=== PATIENT | female | born 1985 | race Asian ===

== ENCOUNTER 2017-01-31 11:23 | Emergency (ER) | payer OTHER ==
[2017-01-31 11:28] VITALS: BMI 23.6
[2017-01-31 12:01] LABS: BASOPHIL 0.2 % (0-2.0); EOSINOPHIL 0.1 % (0-4.5); MCH 28.7 pg (25.7-33.7); MCHC 33.8 g/dl (32.0-36.0); MEAN CELL VOLUME 84.9 fl (80-96); MEAN PLT VOLUME 7.8 fl (7.5-11.1); NEUTROPHILS 90.7 % (42.8-82.8); PLATELET COUNT 222 K/MM3 (134-434); RDW 13.7 % (11.6-15.6); WHITE BLOOD COUNT 16.9 K/mm3 (4.0-10.0)
[2017-01-31 12:27] LABS: ALBUMIN 3.4 g/dl (3.4-5.0); ANION GAP 10 (8-16); CALCIUM 8.8 mg/dL (8.5-10.1); CO2 20 mmol/L (21-32); CREATININE 0.3 mg/dL (0.55-1.02); GLUCOSE,RANDOM 83 mg/dL (74-106); SGPT/ALT 23 U/L (12-78)
[2017-01-31 12:28] LABS: ALK PHOS 64 U/L (45-117); BILIRUBIN,TOTAL 0.7 mg/dL (0.2-1.0); TOT PROT 6.6 g/dl (6.4-8.2)
[2017-01-31 12:38] LABS: URINE APPEARANCE CLEAR; URINE BILIRUBIN NEGATIVE (NEGATIVE); URINE COLOR YELLOW; URINE GLUCOSE (UA) NEGATIVE (NEGATIVE); URINE KETONE 2+ (NEGATIVE); URINE LEUK ESTERASE NEGATIVE (NEGATIVE); URINE NITRITE NEGATIVE (NEGATIVE); URINE PROTEIN NEGATIVE (NEGATIVE); URINE UROBILINOGEN NEGATIVE E.U./dl (0.2-1.0)
[2017-01-31 12:47] LABS: SGOT/AST 26 U/L (15-37)
[2017-01-31 12:51] LABS: URINE BLOOD 2+ (NEGATIVE)
[2017-01-31 13:13] LABS: URINE MUCUS RARE; URINE RBC 21 /hpf (0-3); URINE WBC 1 /hpf (3-5)
[2017-01-31] MEDS ORDERED: SODIUM CHLORIDE 1,000 ML IV STA ×2 (13:27→14:21)
--- NOTE | 2017-01-31 13:37 | PDOC ---
History of Present Illness - General Chief Complaint: Vaginal Bleeding Stated Complaint: 14 WEEKS PREG / vaginal bleed/water Time Seen by Provider: 01/31/17 11:30 History Source: Patient Exam Limitations: No Limitations - History of Present Illness Travel History: No Initial Comments: 01/31/17 13:07 31-year-old female approximately 15 weeks presents to the ED for evaluation of vaginal bleeding along with clear fluid noted this morning upon awakening. Patient states went to another ER for evaluation and was told that the amniotic fluid was low and she is to follow-up with her doctor. Patient states then went to [facility] where her [employer]PAR[employer]OR Dr. Porter works at, but when he was not there she called him on the phone and was told to go to [facility] for further evaluation. Patient currently states has no abdominal pain but continues to leak fluid along with blood and on the ultrasound report it mentions oligohydramnios. Timing/Duration: reports: constant Past History - Past Medical History Allergies/Adverse Reactions: Allergies Allergy/AdvReac Type Severity Reaction Status Date / Time No Known Allergies Allergy Verified 01/31/17 11:28 Home Medications: Ambulatory Orders Vit Calc,Iron,Folic [ Vitamins] 1 tab DAILY 01/31/17 Other medical history: G4,P2, 1 - Reproductive History (#): 4 Para: 2 Therapeutic (s) & number: Yes (1) Uterine Fibroids: No - Psycho/Social/Smoking Cessation Hx Suicidal Ideation: No Smoking History: Never smoked Information on smoking cessation initiated: No Hx Alcohol Use: No Drug/Substance Use Hx: No Substance Use Type: None Patient Lives Alone: No Lives with/in: spouse/SO Review of Systems - Review of Systems Able to Perform ROS?: Yes Constitutional: No: Symptoms Reported HEENTM: No: Symptoms Reported Respiratory: No: Symptoms reported Cardiac (ROS): No: Symptoms Reported ABD/GI: No: Symptoms Reported : Yes: Discharge Musculoskeletal: No: Symptoms Reported Integumentary: No: Symptoms Reported Neurological: No: Symptoms reported Hematologic/Lymphatic: No: Symptoms Reported *Physical Exam - Vital Signs Last Vital Signs Temp Pulse Resp BP Pulse Ox 98.9 F 101 H 18 149/77 99 01/31/17 11:26 01/31/17 11:26 01/31/17 11:26 01/31/17 11:26 01/31/17 11:26 - Physical Exam General Appearance: Yes: Nourished, Appropriately Dressed. No: Apparent Distress HEENT: positive: EOMI. negative: Pale Conjunctivae Neck: positive: Supple Respiratory/Chest: positive: Lungs Clear, Normal Breath Sounds. negative: Respiratory Distress, Accessory Muscle Use Cardiovascular: positive: Regular Rhythm, Regular Rate. negative: Murmur Female Pelvic Exam: positive: cervical os closed, discharge (thin pinkish red fluid mixed with small blood clots) Gastrointestinal/Abdominal: positive: Normal Bowel Sounds, Soft. negative: Distended, Tenderness Extremity: positive: Normal Capillary Refill Integumentary: positive: Normal Color, Warm, Moist Neurologic: positive: Motor Strength 5/5 (ambulatory) ED Treatment Course - LABORATORY CBC & Chemistry Diagram: 01/31/17 11:59 01/31/17 11:59 - ADDITIONAL ORDERS Additional order review: Laboratory Results 01/31/17 01/31/17 01/31/17 12:00 12:00 11:59 Sodium 138 Potassium 4.8 Chloride 108 H Carbon Dioxide 20 L Anion Gap 10 BUN 7 Creatinine 0.3 L Creat Clearance w eGFR > 60 Random Glucose 83 Calcium 8.8 Total Bilirubin 0.7 AST 26 ALT 23 Alkaline Phosphatase 64 Total Protein 6.6 Albumin 3.4 Urine Color Yellow Urine Appearance Clear Urine pH 6.0 Urine Protein Negative Urine Glucose (UA) Negative Urine Ketones 2+ H Urine Blood 2+ H Urine Nitrite Negative Urine Bilirubin Negative Urine Urobilinogen Negative Ur Leukocyte Esterase Negative Urine RBC 21 Urine WBC 1 Ur Epithelial Cells Rare Urine Mucus Rare Blood Type O POSITIVE Antibody Screen Negative 01/31/17 11:59 RBC 4.47 MCV 84.9 MCHC 33.8 RDW 13.7 MPV 7.8 Neutrophils % 90.7 H Lymphocytes % 6.1 L Monocytes % 2.9 L Eosinophils % 0.1 Basophils % 0.2 - RADIOLOGY Radiology Studies Ordered: Category Date Time Status LIMITED US [US] Stat Ultrasound 01/31/17 11:31 Ordered Medical Decision Making - Medical Decision Making 01/31/17 13:02 Patient was told by [facility] to come to the ER secondary to continual vaginal fluid leakage concerning for oligohydramnios. On exam nitrazine paper pH was measured at 7.5 suggestive of amniotic fluid Patient also with thin pinkish fluid on Friday nap again and in vaginal canal. Case discussed with Dr. Porter 's associate and is considering to do a D&C today once ultrasound is done here in [facility]. Type and screen, labs, urine IV access and IV fluids ordered 01/31/17 14:22 Patient with noted white count and now elevated heart rate of 118. Patient ordered for second bag of fluid including a lactic acid. Awaiting read of ultrasound. Patient ordered for ampicillin and erythromycin for prophylactic therapy. 01/31/17 14:22 Laboratory Tests 01/31/17 01/31/17 01/31/17 11:59 11:59 12:00 WBC 16.9 H Hgb 12.8 Hct 38.0 Neutrophils % 90.7 H Sodium 138 Potassium 4.8 Chloride 108 H Carbon Dioxide 20 L Anion Gap 10 BUN 7 Creatinine 0.3 L Creat Clearance w eGFR > 60 Random Glucose 83 Calcium 8.8 AST 26 ALT 23 Urine Ketones Urine Blood Urine Nitrite Ur Leukocyte Esterase Urine RBC Urine WBC Blood Type O POSITIVE 01/31/17 12:00 WBC Hgb Hct Neutrophils % Sodium Potassium Chloride Carbon Dioxide Anion Gap BUN Creatinine Creat Clearance w eGFR Random Glucose Calcium AST ALT Urine Ketones 2+ H Urine Blood 2+ H Urine Nitrite Negative Ur Leukocyte Esterase Negative Urine RBC 21 Urine WBC 1 Blood Type 01/31/17 15:38 Laboratory Tests 01/31/17 15:00 Lactic Acid 0.5 Called [facility] in [place] and patient has an appointment scheduled tomorrow at 10 AM and knows not to eat after midnight and to bring her [facility] insurance card. She is knows the facility since she had her therapeutic done there in June. I have spoken to her and her mother will watch her toddler and drive her to the clinic as an escort. *DC/Admit/Observation/Transfer Diagnosis at time of Disposition: Oligohydramnios due to rupture of membranes - Discharge Dispostion Disposition: HOME Condition at time of disposition: Fair - Referrals Referrals: Coty Roman [Primary Care Provider] - Daryl Porter MD [Staff Physician] - - Patient Instructions Printed Discharge Instructions: DI for Oligohydramnios Additional Instructions: Please go to [facility] tomorrow at 10 AM into a scheduled appointment for D&C. You are not allowed to eat after midnight tonight including water and gum. You are to be escorted with your mother tomorrow as part of the requirements and must be picked up also by a person upon discharge. If you develop fever, severe abdominal pain, or severe vaginal bleeding please return to the ED immediately
[2017-01-31] MEDS ORDERED: ERYTHROMYCIN BASE 500 MG TABLET PO ONE (14:25)
[2017-01-31] MEDS ORDERED: AMPICILLIN - 2 GM in SODIUM CHLORIDE 100 ML IVPB ONE (14:25)
[2017-01-31] MEDS ORDERED: AMPICILLIN SODIUM 2 GM VIAL ONE (14:29)
[2017-01-31] MEDS ORDERED: ERYTHROMYCIN BASE 250 MG TAB PO ONE (14:45)
[2017-01-31 16:36] VITALS: BP 120/89; PULSE 98; TEMP 98.9
== END 2017-01-31 16:36 | disposition home or self-care (01) ==
LOC: JER 11:23
PROC: 3E0337Z Introduction of Electrolytic and Water Balance Substance into Peripheral Vein, Percutaneous Approach (ICD-10-PCS; principal; 2017-01-31)
PROC: 3E03329 Introduction of Other Anti-infective into Peripheral Vein, Percutaneous Approach (ICD-10-PCS; 2017-01-31)
DX: O42.912 Preterm premature rupture of membranes, unspecified as to length of time between rupture and onset of labor, second trimester (principal); Z3A.17 17 weeks gestation of pregnancy
CPT/HCPCS: 36415; 76815-TC; 80053; 81003; 81015; 83605; 85025; 86850; 86900; 86901; 87086; 96361; 96365; 99283-25